=== PATIENT | male | born 1990 | race Two or more races ===

== ENCOUNTER → 2019-09-13 | Emergency (ER) | payer OTHER ==
[~2019-09-13] VITALS: Ht 172.7 cm; Wt 88.5 kg
[~2019-09-13] MED LIST: KETO10TA2 PO
== END | disposition home or self-care (01) ==
LOC: ER 00:52
DX: S93.402A Sprain of unspecified ligament of left ankle, initial encounter (principal); X50.0XXA Overexertion from strenuous movement or load, initial encounter; Y93.89 Activity, other specified; Y92.512 Supermarket, store or market as the place of occurrence of the external cause; Y99.8 Other external cause status